=== PATIENT | female | born 2000 | race American Indian/Alaskan Native ===

== ENCOUNTER 2019-01-28 15:57 | Inpatient (IN) | payer MEDICAID ==
[2019-01-28] MEDS ORDERED: LACTATED RINGERS 1,000 ML ONE (16:30)
[2019-01-28] MEDS ORDERED: AMPICILLIN/NS 2 GM/100 ML 2 GM/100 ML BAG IV ONE (16:37)
[2019-01-28] MEDS ORDERED: MINERAL OIL PO PRN (16:37)
[2019-01-28] MEDS ORDERED: XYLOCAINE 2% INFILTRATI ONE (16:37)
[2019-01-28] MEDS ORDERED: ZOFRAN IV PRN (16:37)
[2019-01-28] MEDS ORDERED: BRETHINE SUB-Q PRN (16:37)
--- NOTE | 2019-01-28 16:38 | History and Physical Report ---
History of Present Illness Date of examination: 01/28/19 Date of admission: 01/28/19 15:57 Chief complaint: laboring, sent from office 7cms History of present illness: EDC Confirmation: 01/28/2019 Gestational Age: 9 4/7 weeks Past History : 1 Term Births: 0 Premature Births: 0 Living Children: 0 Para: 0 Mult. Births: 0 Prev : 0 Prev. attempt? 0 Aborta: 0 Elect. Ab: 0 Spont. Ab: 0 Ectopics: 0 Past Medical History: Negative Past Medical History Past Surgical History: negative Negative Past Surgical History Past Medical History Anesthesia Complications: negative Anemia: negative Autoimmune Disorder: negative Bleeding Disorder: negative Blood Transfusions: negative Breast Disease: negative Diabetes: negative Heart Disease: negative Hypertension: negative Hepatitis/Liver Disease: negative Kidney Disease/UTI: negative Neurologic/Epilepsy/Migraines: negative Phlebitis/Varicosities: negative Psychiatric: negative Pulmonary Disease/Asthma: negative Thyroid Disease: negative Hospitalizations: negative Surgery (Non-research scientist): negative Negative Past Surgical History Family Hx: father - HTN Social Hx: single no ETOH/Drugs/Smoking Infection History Hx of STD: none HIV Risk Eval: no Hepatitis B Risk Eval: low risk Personal hx. of genital herpes: no Partner hx. of genital herpes: no Rash, Viral, or Febrile illness since last LMP? no Varicella/Chicken Pox Status: Unknown Genetic History Congenital Heart Defect: Mom: no Dad: no Lucian Disease: Mom: no Dad: no Thalassemia Mom: no Dad: no Neural Tube Defect Mom: no Dad: no Down's Syndrome Mom: no Dad: no Kan-Sachs Mom: no Dad: no Sickle Cell Disease/Trait Mom: no Dad: no Hemophilia Mom: no Dad: no Muscular Dystrophy Mom: no Dad: no Cystic Fibrosis Mom: no Dad: no Karon Chorea Mom: no Dad: no Mental Retardation Mom: no Dad: no Fragile X Mom: no Dad: no Other Genetic/Chromosomal Disorder Mom: no Dad: no Child w/other defect Mom: no Dad: no Enviromental Exposures Xray Exposure: no Medication, drug, or alcohol use since LMP: no Chemical/Other Exposure: no Exposure to Cat Liter: no Hx of Parvovirus (Fifth Disease): no Occupational Exposure to Children: none Current Allergies (reviewed today): No known allergies Past History Past Medical History: other (see HPI) Past Surgical History: other (see HPI) 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, 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/19) Family/Genetic History: other (see HPI) Social history: single - Obstetrical History Expected Date of Delivery: 01/28/19 Actual Gestation: 40 Week(s) 0 Day(s) : 1 Para: 0 Hx # Term Pregnancies: 0 Number of Pregnancies: 0 Spontaneous Abortions: 0 Induced : 0 Number of Living Children: 0 Medications and Allergies Allergies Allergy/AdvReac Type Severity Reaction Status Date / Time No Known Allergies Allergy Verified 06/10/14 21:16 Home Medications Medication Instructions Recorded Confirmed Last Taken Type Penicillin Vk [Veetids TAB] 500 mg PO BID #20 tablet 06/11/14 Unknown Rx Review of Systems All systems: negative - Physical Exam Breasts: Positive: normal Cardiovascular: Regular rate Lungs: Positive: Clear to auscultation, Normal air movement Abdomen: Positive: normal appearance, soft Genitourinary (Female): Positive: normal external genitalia, normal perenium Vulva: both: normal Vagina: Positive: normal moisture Uterus: Positive: normal size, normal contour - Obstetrical Cervical Dilatation: 7 Cervical Effacement Percentage: 90 station: 0 Uterine Tone Measurement Phase: Contraction Uterine Contraction Intensity: Mild Results All other labs normal. Assessment and Plan 18y/o @ 40 weeks seen in office for regular office appointment, SVE /0, head well applied. pelvis feels adequate for size. GBS +. Orders in EMR, anticipate . - Patient Problems (1) 40 weeks gestation of Current Visit: Yes Status: Acute (2) Active labor at term Current Visit: Yes Status: Acute (3) GBS (group B Streptococcus carrier), +RV culture, currently Current Visit: Yes Status: Acute Plan to address problem: ampicillin q4h until delivery
[2019-01-28] MEDS ORDERED: PITOCin/NS 20 UNIT/1000ML DRIP 20 UNITS/1,000 ML BAG IV SCH (17:00)
[2019-01-28] MEDS ORDERED: PITOCin/NS 30 UNIT/500ML 30 UNITS/500 ML BAG IV SCH (17:00)
--- NOTE | 2019-01-28 17:20 | Progress Note ---
Assessment and Plan Pt bolusing for epidural SVE 9,100,0 ROM ISE/IUPC placed Re-eval after epidural or as needed. Subjective - Subjective Date of service: 01/28/19 (difficult monitoring fetus) Patient reports: movement normal Objective - Exam Breasts: deferred Cardiovascular: Regular rate Lungs: Normal air movement Abdomen: Present: normal appearance, soft. Absent: distention, tenderness Uterus: Present: normal FHR: auscultation normal, category 1 Uterine Contraction Monitor Mode: Internal Cervical Dilatation: 9 (ROM) Cervical Effacement Percentage: 100 (ISE/IUPC placed) station: 0 Uterine Contraction Pattern: Irregular Uterine Tone Measurement Phase: Resting Uterine Contraction Intensity: Mild Extremities: edema Deep Tendon Reflex Grade: Normal +2
[2019-01-28] MEDS: SUBLIMAZE IV PRN ×2 (17:33→19:41)
[2019-01-28] MEDS: LACTATED RINGERS 1,000 ML IV SCH ×2 (17:34→20:16)
[2019-01-28 17:51] LABS: Hemoglobin 12.2 gm/dl (10.1-14.3); Mean Corpuscular HGB Conc 34 % (30-34); Mean Corpuscular Volume 100 fl (79-97); Platelet Count 264 K/mm3 (140-440); Red Blood Count 3.61 M/mm3 (3.65-5.03)
[2019-01-28] MEDS ORDERED: NARCAN 2 MG/2 ML IV PRN (19:56)
[2019-01-28] MEDS ORDERED: fentaNYL-BUPIV 2 MCG/ML-0.125% 200 MCG/100 ML BAG EPIDURAL SCH (20:00)
[2019-01-28] MEDS ORDERED: AMPICILLIN/NS 1 GM/50 ML 1 GM/50 ML BAG IV SCH (20:39)
--- NOTE | 2019-01-28 21:21 | Anesthesia Consultation ---
Anesthesia Consult and Med Hx Date of service: 01/28/19 - Airway Anesthetic Teeth Evaluation: Good ROM Head & Neck: Adequate Mental/Hyoid Distance: Adequate Mallampati Class: Class III Intubation Access Assessment: Probably Good - Pulmonary Exam CTA: Yes - Cardiac Exam Cardiac Exam: RRR - Pre-Operative Health Status ASA Pre-Surgery Classification: ASA2 Proposed Anesthetic Plan: Epidural, Spinal - Pulmonary Hx Smoking: No Hx Asthma: No Hx Respiratory Symptoms: No SOB: No COPD: No Home Oxygen Therapy: No Hx Pneumonia: No Hx Sleep Apnea: No - Cardiovascular System Hx Hypertension: No Hx Coronary Artery Disease: No Hx Heart Attack/AMI: No Hx Angina: No Hx Percutaneous Transluminal Coronary Angioplasty (PTCA): No Hx Cardia Arrhythmia: No Hx Pacemaker: No Hx Internal Defibrillator: No Hx Valvular Heart Disease: No Hx Heart Murmur: No Hx Peripheral Vascular Disease: No - Central Nervous System Hx Neuromuscular Disorder: No Hx Seizures: No CVA: No Hx Back Pain: Yes Hx Psychiatric Problems: No - Gastrointestinal Hx Ulcer: No Hx Gastroesophageal Reflux Disease: Yes - Endocrine Hx Renal Disease: No Hx End Stage Renal Disease: No Hx Cirrhosis: No Hx Liver Disease: No Hx Insulin Dependent Diabetes: No Hx Non-Insulin Dependent Diabetes: No Hx Thyroid Disease: No Hx Hypothyroidism: No Hx Hyperthyroidism: No - Hematic Hx Anemia: No Hx Sickle Cell Disease: No - Other Systems Hx Alcohol Use: No Hx Substance Use: No Hx Cancer: No Hx Obesity: Yes
--- NOTE | 2019-01-28 21:21 | Anesthesia Day of Surgery ---
Anesthesia Day of Surgery - Day of Surgery Patient Examined: Yes Patient H&P Reviewed: Yes Patient is NPO: Yes Beta Blockers: No Cardiac Clearance: No Pulmonary Clearance: No Kevin's Test: N/A
--- NOTE | 2019-01-28 21:22 | Post Anesthesia Evaluation ---
- Post Anesthesia Evaluation Patient Participated: Yes Airway Patent: Yes Stable Respiratory Function: Yes Nausea/Vomiting: No Temp > 96.8F: Yes Pain Manageable: Yes Adequeate Hydration: Yes Anesthesia Complications: No Block Receding Appropriately: Yes Patient on Ventilator: No
[2019-01-28] MEDS ORDERED: CYTOTEC ONE (23:11)
[2019-01-28] MEDS ORDERED: HEMABATE IM ONE ×2 (23:12→23:13)
[2019-01-28] MEDS ORDERED: CYTOTEC PR ONE (23:12)
[2019-01-28] MEDS ORDERED: LOMOTIL PO PRN (23:32)
--- NOTE | 2019-01-28 23:39 | Procedure Note ---
OB Delivery Note - Delivery Date of Delivery: 01/28/19 Surgeon: MASOOD SILVER Estimated blood loss: 500cc (mild uterine atony resolved with manual massage, Hemabate, Pitocin 20u IV bolus) - Vaginal Delivery presentation: vertex Delivery position: OA Intrapartum events: other(please specify) (morbid obesity) Delivery induction: none Delivery monitor: external FHT, external uterine Route of delivery: Delivery placenta: spontaneous (intact) Episiotomy: midline ( bradycardia with poor maternal expulsive effort) Delivery repair: vicryl (2-0, usual fashion) Anesthesia: epidural - Infant A at 1 minute: 8 at 5 minutes: 9 Infant Gender: Female (6lbs 13oz)
[2019-01-29] MEDS ORDERED: MAGNESIUM SULFATE 4GM/100ML 4 GM/100 ML BAG IV ONE (00:57)
[2019-01-29] MEDS ORDERED: APRESOLINE IV ONE (00:59)
[2019-01-29] MEDS ORDERED: LACTATED RINGERS 1,000 ML IV SCH (01:00)
[2019-01-29] MEDS ORDERED: APRESOLINE IV PRN (01:09)
[2019-01-29] MEDS ORDERED: PHENERGAN PR PRN (01:13)
[2019-01-29] MEDS ORDERED: SODIUM CHLORIDE FLUSH SYRINGE 10 ML IV PRN (01:13)
[2019-01-29] MEDS ORDERED: LANSINOH TP PRN (01:13)
[2019-01-29] MEDS ORDERED: MILK OF MAGNESIA PO PRN (01:13)
[2019-01-29] MEDS ORDERED: TYLENOL PO PRN (01:13)
[2019-01-29] MEDS ORDERED: PITOCin/NS 20 UNIT/1000ML DRIP 20 UNITS/1,000 ML BAG IV SCH (01:13)
[2019-01-29] MEDS ORDERED: PHENERGAN PO PRN (01:13)
[2019-01-29] MEDS ORDERED: TUCKS PAD TP PRN (01:13)
[2019-01-29] MEDS ORDERED: DULCOLAX PR PRN (01:13)
[2019-01-29] MEDS ORDERED: ZOFRAN IV PRN (01:13)
[2019-01-29] MEDS ORDERED: BENADRYL PO PRN (01:13)
[2019-01-29] MEDS: MAGNESIUM SULFATE 40GM/1000ML 40 GM/1,000 ML BAG IV SCH ×2 (02:38→22:08)
[2019-01-29] MEDS: IBUPROFEN PO SCH ×3 (02:44→19:33)
[2019-01-29 02:48] LABS: Alanine Aminotransferase 16 units/L (7-56)
[2019-01-29 03:55] LABS: Uric Acid 4.8 mg/dL (3.5-7.6)
--- NOTE | 2019-01-29 08:07 | Progress Note ---
Assessment and Plan PPD 1 Patient reports feeling well, denies any complaints or needs at this time. Fundus is firm, ML, U/1. Vaginal bleeding is minimal, patient denies any clots or heave bleeding. Patient reports pain is minimal, controlled well with medications. Magnesium is currently infusing as ordered. BPs range 140s-160s/70s-90s on magnesium, 200mg labetalol PO BID ordered, patient is aware. Labs reviewed with patient. Will discontinue magnesium 24 hrs post delivery, will continue to monitor BPs. Patient denies any HESTER, visual disturbances, RUQ pain. Assessment is WNL. Continue current POC. Subjective - Subjective Date of service: 01/29/19 Principal diagnosis: PPD1 s/p elevated BPs Patient reports: appetite normal, pain well controlled, flatus [place]: doing well Objective - Vital Signs Latest vital signs: Vital Signs Temp Pulse Resp BP Pulse Ox 01/29/19 07:58 103 H 100 01/29/19 07:54 95 H 140/87 01/29/19 07:53 97 H 100 01/29/19 07:48 94 H 100 01/29/19 07:45 50 L 66 L 01/29/19 07:43 93 H 100 01/29/19 07:38 91 H 100 01/29/19 07:36 90 64 L 01/29/19 07:33 103 H 99 01/29/19 07:28 92 H 100 01/29/19 07:24 89 147/87 01/29/19 07:23 92 H 100 01/29/19 07:18 91 H 100 01/29/19 07:13 92 H 99 01/29/19 07:08 97.8 F 95 H 100 01/29/19 07:03 97 H 98 01/29/19 06:58 94 H 99 01/29/19 06:54 93 H 139/76 01/29/19 06:53 95 H 99 01/29/19 06:48 94 H 100 01/29/19 06:45 59 L 61 L 01/29/19 06:43 96 H 100 01/29/19 06:38 96 H 100 01/29/19 06:33 96 H 100 01/29/19 06:28 89 100 01/29/19 06:24 91 H 157/76 01/29/19 06:23 97 H 100 01/29/19 06:18 87 100 01/29/19 06:13 89 100 01/29/19 06:08 95 H 98 01/29/19 06:03 105 H 100 01/29/19 05:58 94 H 100 01/29/19 05:55 93 H 162/73 01/29/19 05:53 85 57 L 01/29/19 05:48 93 H 100 01/29/19 05:44 89 89 01/29/19 05:43 101 H 100 01/29/19 05:38 95 H 100 01/29/19 05:33 89 100 01/29/19 05:28 90 100 01/29/19 05:23 89 65 L 01/29/19 05:21 65 70 L 01/29/19 05:18 94 H 100 01/29/19 05:13 91 H 99 01/29/19 05:08 86 99 01/29/19 05:03 96 H 99 01/29/19 04:58 94 H 140/64 97 01/29/19 04:24 95 H 142/85 01/29/19 04:19 109 H 94 01/29/19 04:15 94 H 100 01/29/19 04:10 86 100 01/29/19 04:05 89 100 01/29/19 04:00 89 100 01/29/19 03:55 91 H 100 01/29/19 03:54 99 H 142/84 01/29/19 03:50 92 H 100 01/29/19 03:45 88 100 01/29/19 03:40 88 100 01/29/19 03:35 88 100 01/29/19 03:30 86 100 01/29/19 03:25 89 100 01/29/19 03:24 83 140/84 01/29/19 03:20 83 100 01/29/19 03:15 81 100 01/29/19 03:10 86 100 01/29/19 03:05 81 100 01/29/19 03:00 86 99 01/29/19 02:55 80 100 01/29/19 02:54 80 148/81 05 02:50 90 100 01/29/19 02:45 88 100 01/29/19 02:40 85 100 01/29/19 02:35 82 100 01/29/19 02:31 56 L 80 L 01/29/19 02:30 82 100 01/29/19 02:25 78 97 01/29/19 02:24 75 141/82 01/29/19 02:20 80 98 01/29/19 02:15 80 98 01/29/19 02:10 77 99 01/29/19 02:05 74 100 01/29/19 01:39 81 149/89 01/29/19 01:24 78 162/92 01/29/19 01:09 77 159/96 01/29/19 01:06 76 157/95 01/29/19 01:00 76 161/93 01/29/19 00:54 72 169/93 01/29/19 00:39 76 157/91 01/29/19 00:24 79 161/94 01/29/19 00:09 71 163/97 01/28/19 23:54 75 157/88 01/28/19 23:39 81 155/83 01/28/19 23:24 90 148/86 01/28/19 23:09 85 138/80 01/28/19 23:07 76 143/96 01/28/19 22:55 93 H 141/83 01/28/19 22:53 98 H 62 L 01/28/19 22:48 89 100 01/28/19 22:39 91 H 151/94 01/28/19 22:33 96 H 0 L 01/28/19 22:32 101 H 99 01/28/19 22:27 117 H 100 01/28/19 22:25 92 H 145/105 01/28/19 22:22 89 100 01/28/19 22:19 99 H 80 L 01/28/19 22:17 103 H 100 01/28/19 22:12 96 H 100 01/28/19 22:10 94 H 143/94 94 01/28/19 22:07 104 H 100 01/28/19 22:02 91 H 92 01/28/19 22:01 102 H 0 L 01/28/19 21:56 93 H 100 01/28/19 21:54 86 147/85 91 01/28/19 21:51 83 100 01/28/19 21:46 87 83 L 01/28/19 21:41 90 96 01/28/19 21:40 90 143/74 87 01/28/19 21:36 85 95 01/28/19 21:34 89 90 01/28/19 21:31 84 100 01/28/19 21:29 88 94 01/28/19 21:26 84 69 L 01/28/19 21:24 81 144/80 01/28/19 21:21 85 74 L 01/28/19 21:20 86 80 L 01/28/19 21:16 82 100 01/28/19 21:11 77 100 01/28/19 21:09 79 140/82 01/28/19 21:06 82 100 01/28/19 21:01 80 100 01/28/19 20:56 77 100 01/28/19 20:53 83 91 01/28/19 20:52 78 144/82 01/28/19 20:51 84 100 01/28/19 20:49 77 145/79 01/28/19 20:46 79 144/77 100 01/28/19 20:43 73 138/74 01/28/19 20:41 77 100 01/28/19 20:40 79 132/70 01/28/19 20:37 80 132/71 01/28/19 20:36 75 100 01/28/19 20:34 77 132/71 01/28/19 20:31 75 129/68 100 01/28/19 20:28 76 135/71 01/28/19 20:26 81 100 01/28/19 20:25 78 144/70 01/28/19 20:22 88 144/97 01/28/19 20:21 82 100 01/28/19 20:19 98 H 145/95 83 L 01/28/19 20:16 96 H 146/90 98 01/28/19 20:11 103 H 100 01/28/19 20:06 98 H 98 01/28/19 20:03 90 143/89 01/28/19 20:01 102 H 100 01/28/19 19:56 96 H 98 01/28/19 17:00 98.1 F 16 Intake and Output 01/28/19 01/29/19 01/29/19 23:59 07:59 15:59 Intake Total 337.5 Output Total 950 Balance 337.5 -950 Intake: IV 337.5 Lactated Ringers 1,000 ml 337.5 @ 125 mls/hr IV DIRECT MONICA Rx#:[id number] Output: Urine 950 Indwelling Catheter 950 Other: Total, Output Amount 300 Weight 124.738 kg Estimated Blood Loss 500 - Exam Breasts: Present: normal Cardiovascular: Present: Regular rate, Normal S1, Normal S2 Lungs: Present: Clear to auscultation Abdomen: Present: normal appearance, soft, normal bowel sounds Vulva: both: normal Uterus: Present: normal, firm Extremities: Present: normal Deep Tendon Reflex Grade: Normal +2 Incision: Present: normal, dry, intact - Labs Labs: Abnormal lab results 01/28/19 01/29/19 01/29/19 Range/Units 16:30 01:30 05:22 RBC 3.61 L (3.65-5.03) M/mm3 MCV 100 H (79-97) fl MCH 34 H (28-32) pg RDW 13.0 L (13.2-15.2) % Creatinine 0.6 L (0.7-1.2) mg/dL Magnesium 3.60 H (1.7-2.3) mg/dL Lactate Dehydrogenase 296 H (91-180) units/L
[2019-01-29] MEDS: NORMODYNE PO SCH ×2 (10:23→21:55)
[2019-01-29 12:27] LABS: Hemoglobin 10.3 gm/dl (10.1-14.3)
[2019-01-30] MEDS: IBUPROFEN PO SCH ×2 (05:34→11:56)
[2019-01-30] MEDS ORDERED: BOOSTRIX IM ONE (06:00)
[2019-01-30] MEDS: NORMODYNE PO SCH (10:15)
--- NOTE | 2019-01-30 15:05 | Discharge Summary ---
Providers - Providers Date of Admission: 01/28/19 15:57 Date of discharge: 01/30/19 Attending physician: MASOOD SILVER 01/29/19 01:13 Consult to Detective Supervisor [CONS] Routine Reason For Exam: assistance with , SNS Primary care physician: MASOOD SILVER Hospitalization Reason for admission: active labor Delivery: Procedure: other (vaginal delivery) Procedure details: see delivery note Episiotomy: other (see delivery note) Laceration: other (see delivery note) complications: other (elevated blood pressure) Discharge diagnosis: IUP at term delivered Simpson baby: female Hospital course: Pt admitted in active labor and had normal delivery. post was complicated by elevated BPs for which she was placed on labetalol 200mg bid. Pt other oh had an uncomplicated pp course. Pt will be d/c home today PPD#2 Condition at discharge: Good Disposition: DC-01 TO HOME OR SELFCARE - Discharge Diagnoses (1) Normal delivery at term Status: Acute (2) Blood pressure elevated without history of HTN Status: Acute Plan - Discharge Medications Prescriptions: Labetalol [Labetalol 200mg TAB] 200 mg PO BID #60 tablet - Provider Discharge Summary Activity: no sex for 6 weeks, no heavy lifting 4 weeks Diet: routine Instructions: routine Additional instructions: [] Smoking cessation referral if applicable(refer to patient education folder for contact #) [] Refer to [facility] Booklet Call your doctor immediately for: * Fever > 100.5 * Heavy vaginal bleeding ( >1 pad per hour) * Severe persistent headache * Shortness of breath * Reddened, hot, painful area to leg or breast * Drainage or odor from incision. * Keep incision clean and dry at all times and follow doctor's instructions regarding bathing/showering - Follow up plan Follow up: MASOOD SILVER MD [Primary Care Provider] - 7 Days
[2019-01-30 17:59] VITALS: BP 128/73
== END 2019-01-30 18:38 | disposition home or self-care (01) | DRG 775 ==
LOC: LD 15:57 → OB 01-30 05:22
PROVIDERS: ADMIT Obstetrics & Gynecology; ATTEND Obstetrics & Gynecology
PROC: 10E0XZZ Delivery of Products of Conception, External Approach (ICD-10-PCS; principal; 2019-01-28)
PROC: 0W8NXZZ Division of Female Perineum, External Approach (ICD-10-PCS; 2019-01-28)
PROC: 3E0R3BZ Introduction of Anesthetic Agent into Spinal Canal, Percutaneous Approach (ICD-10-PCS; 2019-01-28)
PROC: 00HU33Z Insertion of Infusion Device into Spinal Canal, Percutaneous Approach (ICD-10-PCS; 2019-01-28)
PROC: 10H07YZ Insertion of Other Device into Products of Conception, Via Natural or Artificial Opening (ICD-10-PCS; 2019-01-28)
DX: O76 Abnormality in fetal heart rate and rhythm complicating labor and delivery (principal); O99.62 Diseases of the digestive system complicating childbirth; Z37.0 Single live birth; K21.9 Gastro-esophageal reflux disease without esophagitis; E66.01 Morbid (severe) obesity due to excess calories; O99.214 Obesity complicating childbirth; O62.2 Other uterine inertia; O99.824 Streptococcus B carrier state complicating childbirth; Z82.49 Family history of ischemic heart disease and other diseases of the circulatory system; Z3A.40 40 weeks gestation of pregnancy
CPT/HCPCS: 36415; 82565; 83615; 83735; 84450; 84460; 84550; 85014; 85018; 85027; 86592; 86850; 86900; 86901; 96360; 96374; G0378; J0290; J2405; J2590; J3010; J3475; J7120